=== PATIENT | male | born 1985 | race Caucasian/White ===

== ENCOUNTER 2016-09-16 20:31 | Emergency (ER) | payer MEDICARE ==
[~2016-09-16] VITALS: Ht 165.1 cm; Wt 90.7 kg
[2016-09-16 20:41] VITALS: BP 130/85
--- NOTE | 2016-09-16 22:34 | NUR ---
Patient ambulated to bed 03.
--- NOTE | 2016-09-16 22:35 | NUR ---
PT BIB SIGNIFICANT OTHER C/O HEAD BEING INJURED BY A 2X4 WHILE WORKING AT HOME TODAY AT 1700 WTH LACERATION TO RT ANTERIOR HEAD AND BUMP WITH SWELLING TO RT LATERAL HEAD . DENIES N/V/D; SKIN IS PINK/WARM/DRY; AAOX4 WITH EVEN AND STEADY GAIT; LUNGS CLEAR BL; HR EVEN AND REGULAR; PT DENIES ANY FEVER, CP, SOB, OR COUGH AT THIS TIME; PATIENT STATES PAIN OF 8/10 AT THIS TIME; VSS; PATIENT POSITIONED FOR COMFORT; HOB ELEVATED; BEDRAILS UP X2; BED DOWN. ER MD MADE AWARE OF PT STATUS.
--- NOTE | 2016-09-16 22:41 | NUR ---
Dr. Miles evaluating patient.
[2016-09-16] MEDS ORDERED: LIDOCAINE/EPI 1% 1:100000 20 ML VIAL INJ ONE (22:42)
[2016-09-16] MEDS ORDERED: BACITRACIN OINT 500 UNITS/GM PKT TP ONE (22:43)
--- NOTE | 2016-09-16 23:10 | NUR ---
Patient going to CT via wheelchair per tech.
--- NOTE | 2016-09-16 23:19 | NUR ---
Patient back from CT via wheelchair per tech.
[2016-09-16 23:40] VITALS: BP 130/85
--- NOTE | 2016-09-16 23:40 | NUR ---
Patient discharged with v/s stable. Written and verbal after care instructions given and explained BY MD FAN. Patient alert, oriented and verbalized understanding of instructions. Ambulatory with steady gait. All questions addressed prior to discharge. ID band removed. Patient advised to follow up with PMD. Rx of NAPROSYN given. Patient educated on indication of medication including possible reaction and side effects. Opportunity to ask questions provided and answered.
== END 2016-09-16 23:40 | disposition home or self-care (01) ==
LOC: MED 20:31
PROC: 0HQ1XZZ Repair Face Skin, External Approach (ICD-10-PCS; principal; 2016-09-16)
PROC: BW28ZZZ Computerized Tomography (CT Scan) of Head (ICD-10-PCS; 2016-09-16)
DX: S01.81XA Laceration without foreign body of other part of head, initial encounter (principal); W22.8XXA Striking against or struck by other objects, initial encounter; Y93.9 Activity, unspecified; Y92.89 Other specified places as the place of occurrence of the external cause
CPT/HCPCS: 12013; 70450; 99284; J2001

== ENCOUNTER 2016-09-24 23:55 | Emergency (ER) | payer MEDICARE ==
[~2016-09-24] VITALS: Ht 165.1 cm; Wt 99.8 kg
[2016-09-25 00:22] VITALS: BP 139/81
--- NOTE | 2016-09-25 01:25 | NUR ---
31Y M PRESENTS TO ER FOR SUTURE REMOVAL IN HIS EYEBROW. NO COMPLAINTS OF PAIN/DISCOMFORT. ERMD AWARE.
--- NOTE | 2016-09-25 01:43 | NUR ---
Patient discharged with v/s stable. Written and verbal after care instructions given and explained. Patient verbalized understanding. Ambulatory with steady gait. All questions addressed prior to discharge. Advised to follow up with PMD.
[2016-09-25 01:45] VITALS: BP 139/81
== END 2016-09-25 01:43 | disposition home or self-care (01) ==
LOC: MED 23:55
DX: S01.81XD Laceration without foreign body of other part of head, subsequent encounter (principal); X58.XXXD Exposure to other specified factors, subsequent encounter
CPT/HCPCS: 99281

== ENCOUNTER 2016-11-09 17:08 | Emergency (ER) | payer MEDICARE ==
[~2016-11-09] VITALS: Ht 165.1 cm; Wt 93.0 kg
[2016-11-09 18:08] VITALS: BP 132/88
--- NOTE | 2016-11-09 21:25 | NUR ---
PATIENT LEFT WITHOUT BEING SEEN BY DR. DIOR. NO FURTHER CARE PROVIDED FOR PATIENT.
== END 2016-11-09 21:25 | disposition left against medical advice (07) ==
LOC: MED 17:08
DX: R07.0 Pain in throat (principal); Z53.21 Procedure and treatment not carried out due to patient leaving prior to being seen by health care provider

== ENCOUNTER 2017-06-18 21:10 | Emergency (ER) | payer MEDICAID, MEDICARE ==
[~2017-06-18] VITALS: Ht 165.1 cm; Wt 95.3 kg
[2017-06-18 21:14] VITALS: BP 146/90
[2017-06-18 21:19] VITALS: BP 146/90
--- NOTE | 2017-06-18 21:19 | NUR ---
TO LOBBY, AMB, VSS, A/W FOR BED, EKG DONE, ERMD NOTED.
--- NOTE | 2017-06-19 00:57 | NUR ---
PATIENT LEFT WITHOUT BEING SEEN BY DR. RICHMOND. NO FURTHER CARE PROVIDED FOR PATIENT.
== END 2017-06-19 00:56 | disposition left against medical advice (07) ==
LOC: MED 21:10
DX: R07.9 Chest pain, unspecified (principal); Z53.21 Procedure and treatment not carried out due to patient leaving prior to being seen by health care provider
CPT/HCPCS: 99281